=== PATIENT | male | born 1950 | race Caucasian/White ===

== ENCOUNTER 2021-11-11 06:27 | Day surgery (SDC) | payer BC, OTHER ==
[2021-11-05 11:55] LABS: SARS-CoV-2 Antigen Rapid Res Negative (Negative)
[2021-11-11] MEDS ORDERED: TOBRADEX 0.3-0.1% OPTH OINTMENT ONE (06:58)
[2021-11-11] MEDS ORDERED: BSS OPTHALMIC SOL 15 ML OPTH ONE (06:58)
[2021-11-11] MEDS ORDERED: BALANCED SALT IRRIG PLAIN 500 ML IRR ONE (06:59)
[2021-11-11] MEDS ORDERED: DUOVISC 1 KIT OPTH ONE (06:59)
[2021-11-11] MEDS ORDERED: POVIDONE-IODINE 5% EYE DROPS ONE (06:59)
[2021-11-11] MEDS ORDERED: EPINEPHRINE/PF 1 MG/ML AMP ONE (06:59)
[2021-11-11] MEDS ORDERED: HYALURONATE SODIUM 10 MG/ML SYR OPTH ONE (07:00)
[2021-11-11] MEDS ORDERED: TROPICAMIDE 1% OPTH 3 ML BOT ONE (07:02)
[2021-11-11] MEDS ORDERED: PHENYLEPHRINE 10% OPTH 5ML ONE (07:03)
[2021-11-11] MEDS ORDERED: CYCLOPENTOLATE 2% OPTH 2 ML ONE (07:03)
[2021-11-11] MEDS ORDERED: MOXIFLOXACIN HCL 0.5% 3ML OPTH OPTH ONE (07:03)
[2021-11-11] MEDS ORDERED: NA CHLORIDE 0.9% 1,000 ML ONE (07:03)
[2021-11-11] MEDS ORDERED: KETOROLAC OPTHALMIC 5 ML BOT ONE (07:03)
[2021-11-11] MEDS ORDERED: FENTANYL CITR 100 MCG/2 ML ONE (07:29)
[2021-11-11] MEDS ORDERED: MIDAZOLAM HCL 2 MG/2 ML INJ ONE (07:29)
[2021-11-11] MEDS ORDERED: propofoL 200 MG/20 ML VIAL IV ONE (07:29)
[2021-11-11] MEDS ORDERED: LIDOCAINE 1% MPF 5 ML VIAL ONE (07:29)
[2021-11-11 10:16] VITALS: BP 145/83; TEMP 97.6; O2SAT 98
--- NOTE | 2021-11-11 19:33 | OP ---
DDate of Procedure: 11/11/2021 Surgeon: Ike Ortiz MD Harnessmaker: None. Preoperative Diagnosis: Visually significant cataract, right eye. Postoperative Diagnosis: Visually significant cataract, right eye. Procedure Performed: Cataract extraction, right eye with placement of intraocular lens, right eye. Description Of Procedure: After being properly identified in the preoperative holding, the patient was taken back to the operating room where a time-out was performed. The patient was then prepped and draped in normal sterile fashion. Examination of the eye underneath the operating microscope revealed an adequately dilated pupil with a good red reflex. The globe was grasped with a pair of 0.12 forceps and a paracentesis wound was made in the 12 o'clock and 6 o'clock position. The anterior chamber was then filled with Viscoat and again grasping the globe with a pair of forceps, a triplanar incision was made temporally using a 2.75 mm keratome. A continuous curvilinear capsulorrhexis was created using a cystotome and completed with an Utrata forceps. Hydrodissection and hydrodelineation were carried out using a Starkey cannula resulting in free rotation of the lens nucleus. The lens was thereafter, removed using a standard divide and conquer technique with additional Viscoat applied after every 10 seconds of CDE time and a total of just under 30 seconds of CDE was utilized. Once all 4 quadrants had been removed, the phaco handpiece was exchanged for bimanual irrigation and aspiration handpieces and the remaining cortical material removed and the capsular bag polished. The capsular bag was then filled with Provisc and the intraocular lens made by [employer], model DCB00 diopter 17.0, serial #[id number], was implanted into the capsular bag and rotated into position. The bimanual irrigation and aspiration handpieces were then exchanged for a coaxial I and A handpiece, which was used to remove the remaining viscoelastic material. Once all viscoelastic had been removed, the wounds were hydrated and found to be watertight and the procedure concluded. The lid speculum was removed and the drapes removed as well and the patient patched over TobraDex ointment and wheeled to the postoperative holding area in stable condition, having tolerated the procedure well. There were no complications. The estimated blood loss was nil. No specimens or drains were placed and the implant is as above. The patient is to follow up with myself, Dr. Ike Ortiz, at the [facility] tomorrow morning. AGUILA/ANAMARIA Voice ID: [id number] Report ID: [id number] DICTATED BUT NOT REVIEWED MTDD
== END 2021-11-11 10:05 | disposition home or self-care (01) ==
LOC: OR 06:27
PROVIDERS: ATTEND Ophthalmology
PROC: 08RJ3JZ Replacement of Right Lens with Synthetic Substitute, Percutaneous Approach (ICD-10-PCS; principal; 2021-11-11 07:30)
DX: H25.11 Age-related nuclear cataract, right eye (principal); Z20.822 Contact with and (suspected) exposure to COVID-19
CPT/HCPCS: 36415; 82947 ×2; 87811; 66984; J2704; J0171; J2001; J2250; J3010; J7030; J3490

== ENCOUNTER 2021-12-23 05:50 | Day surgery (SDC) | payer OTHER ==
[2021-12-20 14:58] LABS: SARS-CoV-2 Antigen Rapid Res Negative (Negative)
[2021-12-23] MEDS: NA CHLORIDE 0.9% 1,000 ML ONE ×2 (06:25→07:44)
[2021-12-23] MEDS: MOXIFLOXACIN HCL 0.5% 3ML OPTH OPTH ONE ×3 (06:35→07:05)
[2021-12-23] MEDS: KETOROLAC OPTHALMIC 5 ML BOT ONE ×3 (06:35→07:05)
[2021-12-23] MEDS: PHENYLEPHRINE 10% OPTH 5ML ONE ×3 (06:35→07:05)
[2021-12-23] MEDS: TROPICAMIDE 1% OPTH 3 ML BOT ONE ×3 (06:35→07:05)
[2021-12-23] MEDS: CYCLOPENTOLATE 2% OPTH 2 ML ONE ×3 (06:35→07:05)
[2021-12-23] MEDS ORDERED: TOBRADEX 0.3-0.1% OPTH OINTMENT ONE (06:48)
[2021-12-23] MEDS ORDERED: BSS OPTHALMIC SOL 15 ML OPTH ONE (06:48)
[2021-12-23] MEDS ORDERED: DUOVISC 1 KIT OPTH ONE (06:49)
[2021-12-23] MEDS ORDERED: POVIDONE-IODINE 5% EYE DROPS ONE (06:49)
[2021-12-23] MEDS ORDERED: HYALURONATE SODIUM 10 MG/ML SYR OPTH ONE (06:50)
[2021-12-23] MEDS ORDERED: propofoL 200 MG/20 ML VIAL IV ONE (07:29)
[2021-12-23] MEDS ORDERED: MIDAZOLAM HCL 2 MG/2 ML INJ ONE (07:29)
[2021-12-23] MEDS ORDERED: ONDANSETRON 4 MG/2 ML VIAL ONE (07:29)
[2021-12-23] MEDS ORDERED: FENTANYL CITR 100 MCG/2 ML ONE (07:29)
[2021-12-23] MEDS ORDERED: LIDOCAINE 2% MPF 5 ML VIAL ONE (07:29)
[2021-12-23] MEDS: EPINEPHRINE/PF 1 MG/ML AMP ONE ×2 (07:45→08:13)
[2021-12-23] MEDS: BALANCED SALT IRRIG PLAIN 500 ML IRR ONE ×2 (07:45→08:13)
[2021-12-23] MEDS ORDERED: ACETAMINOPHEN 325 MG TABLET ONE (09:39)
[2021-12-23 10:29] VITALS: BP 140/82; TEMP 98; O2SAT 98
--- NOTE | 2021-12-30 19:17 | OP ---
Date of Procedure: 12/23/2021 Surgeon: Ike Ortiz MD There is a manual operative report in the patient's chart, which is referred to by reference. Should you have any questions, please feel free to call. JPG/CHACHOL Voice ID: [id number] Report ID: [id number]
== END 2021-12-23 10:09 | disposition home or self-care (01) ==
LOC: OR 05:50
PROVIDERS: ATTEND Ophthalmology
PROC: 08RK3JZ Replacement of Left Lens with Synthetic Substitute, Percutaneous Approach (ICD-10-PCS; principal; 2021-12-23 07:30)
DX: H26.8 Other specified cataract (principal); H54.62 Unqualified visual loss, left eye, normal vision right eye
CPT/HCPCS: 36415; 82947 ×2; 87811; 66984; J2704; J0171; J2001; J2250; J3010; J7030; J2405; J3490